=== PATIENT | female | born 1975 | race Caucasian/White ===

== ENCOUNTER 2021-08-06 08:13 | Emergency (ER) | payer BC ==
[~2021-08-06] VITALS: Ht 165.1 cm; Wt 90.3 kg
[~2021-08-06 08:13] MED LIST: ALPRAZOLAM0.5 MG PO; ATIVAN1 MG PO; BACTRIM DS TAB1 EACH PO; DOXYCYCLINE HY100 MG PO; FLONASE ALLERG9.9 ML NAS; IBUPROFEN600 MG PO; IBUPROFEN800 MG PO; MULTI-VITAMIN1 EACH PO; NORCO 5-325 TA1 EACH PO; PRENATAL FORMU1 EAC3 PO; SSD25 GM TOP; VICODIN 5-5001 EACH PO
--- OUTSIDE RECORDS SUMMARY | 2021-08-06 08:16 | XMS ---
PreManage Notification: [employer] [place] [employer] Events No recent Security Events currently on file [facility] There are no care providers on record at this time. Nadia has no Care Guidelines for this patient. Ismael VISIT COUNT (12 MO.) 1 SHEA Ware TOTAL 1 NOTE: Visits indicate total known visits. ED/UCC VISIT TRACKING (12 MO.) 08/06/2021 08:14 SHEA Rodriguez [place] TYPE: Emergency COMPLAINT: - BACK PAIN INPATIENT VISIT TRACKING (12 MO.) No inpatient visits to display in this time frame [email or web address]
[2021-08-06] MEDS ORDERED: PREDNISONE20 MG PO (08:44)
[2021-08-06] MEDS ORDERED: OXYCODONE HCL5 MG PO (08:44)
[2021-08-06] MEDS ORDERED: LISINOPRIL-HCT1 EAC2 PO (09:03)
[2021-08-06] MEDS ORDERED: MOBIC7.5 MG PO (09:04)
[2021-08-06] MEDS ORDERED: DICLOFENAC SOD100 G1 (09:04)
[2021-08-06] MEDS ORDERED: CYCLOBENZAPRINE10 MG PO (09:04)
== END 2021-08-06 09:05 | disposition home or self-care (01) ==
LOC: ED 08:13
DX: S39.92XA Unspecified injury of lower back, initial encounter (principal); Z87.891 Personal history of nicotine dependence; Z79.899 Other long term (current) drug therapy; X50.1XXA Overexertion from prolonged static or awkward postures, initial encounter; X50.0XXA Overexertion from strenuous movement or load, initial encounter
CPT/HCPCS: 99283; J7512

== ENCOUNTER 2024-02-22 09:17 | Emergency (ER) | payer OTHER, BC ==
[~2024-02-22] VITALS: Ht 165.1 cm; Wt 84.0 kg
[~2024-02-22 09:17] MED LIST changes: +CYCLOBENZAPRINE10 MG PO; +DICLOFENAC SOD100 G1; +LISINOPRIL-HCT1 EAC2 PO; +MOBIC7.5 MG PO; +OXYCODONE HCL5 MG PO; +PREDNISONE20 MG PO
[2024-02-22] MEDS ORDERED: PROPRANOLOL HCL10 MG PO (09:38)
[2024-02-22] MEDS ORDERED: ALPRAZOLAM1 MG PO (09:38)
[2024-02-22] MEDS ORDERED: METHYLPREDNISOLO4 M1 PO (09:39)
[2024-02-22] MEDS ORDERED: ESCITALOPRAM OX10 MG PO (09:39)
[2024-02-22] MEDS ORDERED: BUPROPION XL300 MG PO (09:40)
[2024-02-22] MEDS ORDERED: LISINOPRIL-HCT1 EACH PO (09:40)
[2024-02-22] MEDS ORDERED: PERCOCET 7.5-31 EACH PO (09:51)
[2024-02-22] MEDS ORDERED: AMOX TR-K CLV1 EAC1 PO (09:51)
[2024-02-22 10:00] VITALS: BP 169/116
[2024-02-22] MEDS ORDERED: OXYCODONE/APAP 5/325 TAB PO ONE (10:00)
[2024-02-22] MEDS ORDERED: AMOXICILLIN/CLAVULANATE K 875 MG TAB PO ONE (10:00)
== END 2024-02-22 10:00 | disposition home or self-care (01) ==
LOC: ED 09:17
DX: R68.84 Jaw pain (principal); Z87.891 Personal history of nicotine dependence; Z79.899 Other long term (current) drug therapy
CPT/HCPCS: 99283